=== PATIENT | male | born 1940 | race Caucasian/White ===

== ENCOUNTER 2019-08-16 14:49 | Day surgery (SDC) | payer OTHER ==
[~2019-08-16] VITALS: Ht 172.7 cm; Wt 79.8 kg
[~2019-08-16 14:49] MED LIST: ASPI81TA52 PO; ATOR40TA PO; CARV-50 PO; CLOP75TA35 PO; ESOM40CA49 PO; HYDR-4353 PO; LANTUS SQ; LISI-600 PO; MULT-1085 PO; ZOLP10TA5 PO
[2019-08-16 15:20] VITALS: BP 118/75
[2019-08-16] MEDS ORDERED: normal saline 1000ml 1,000 ML IV SCH (15:25)
[2019-08-16] MEDS ORDERED: cefazolin/dext.iso 2gm/100ml 100 ML IV ONE (15:25)
[2019-08-16] MEDS ORDERED: FLO0.4C PO (15:29)
[2019-08-16] MEDS ORDERED: LIDOcaine 1% W/epiNEPHrine 1:100,000 20ml vial ONE (17:41)
[2019-08-16] MEDS ORDERED: fentaNYL/PF 50MCG/1 ML 2ML syringe ONE (17:41)
[2019-08-16] MEDS ORDERED: midazolam 2 mg/2 ml injection ONE (17:41)
[2019-08-16] MEDS ORDERED: ceFAZolin 1000mg inj ONE (17:41)
[2019-08-16 18:44] VITALS: BP 157/59
[2019-08-16 18:59] VITALS: BP 145/61
[2019-08-16 19:15] VITALS: BP 120/57
[2019-08-16 19:30] VITALS: BP 121/67
== END 2019-08-16 19:50 | disposition home or self-care (01) ==
LOC: SSTAY O 14:49
PROVIDERS: ATTEND Internal Medicine Interventional Cardiology
DX: Z45.02 Encounter for adjustment and management of automatic implantable cardiac defibrillator (principal); I25.10 Atherosclerotic heart disease of native coronary artery without angina pectoris; I11.0 Hypertensive heart disease with heart failure; I50.9 Heart failure, unspecified; I25.2 Old myocardial infarction; E11.40 Type 2 diabetes mellitus with diabetic neuropathy, unspecified; Z95.1 Presence of aortocoronary bypass graft
CPT/HCPCS: 33263; 93005; 99152; 99153; C1721; J0690; J2250; J3010; J7030; A4620

== ENCOUNTER 2024-04-16 20:44 | Emergency (ER) | payer MEDICARE, OTHER ==
[~2024-04-16] VITALS: Ht 175.3 cm; Wt 55.5 kg
[~2024-04-16 20:44] MED LIST changes: -CLOP75TA35 PO; -ESOM40CA49 PO; +FLO0.4C PO; -LISI-600 PO; +LISI20TA28 PO; -MULT-1085 PO; -ZOLP10TA5 PO
[2024-04-16 21:31] VITALS: TEMP 97.7
[2024-04-16 21:33] LABS: BASOPHILS % (AUTO) 0.6 % (0-1); EOSINOPHILS % (AUTO) 0.7 % (0-6); HEMATOCRIT 30.4 % (42.0-52.0); HEMOGLOBIN 10.2 g/dl (14.0-17.9); LYMPHOCYTES # (AUTO) 1.5 X10'3 (1.1-4.8); LYMPHOCYTES % (AUTO) 26.6 % (21-51); MEAN CORPUSCULAR HGB CONC 33.6 g/dL (33.0-36.5); MEAN CORPUSCULAR VOLUME 104.1 FL (78-98); MEAN PLATELET VOLUME 10.5 FL (7.4-10.4); MONOCYTES # (AUTO) 0.4 X10'3 (0-0.9); MONOCYTES % (AUTO) 7.3 % (2-12); NEUTROPHILS # (AUTO) 3.6 X10'3 (1.8-7.7); NEUTROPHILS % (AUTO) 64.8 % (42-75); PLATELET COUNT 82 X10'3 (140-440); RED BLOOD COUNT 2.92 X10'6 (4.70-6.10); RED CELL DISTRIBUTION WIDTH 14.4 % (11.5-14.5); WHITE BLOOD COUNT 5.6 X10'3 (4.5-11.0)
[2024-04-16 21:50] LABS: ALANINE AMINOTRANSFERASE 19 U/L (12-78); ALBUMIN 3.3 G/DL (3.4-5.0); ALBUMIN/GLOBULIN RATIO 1.1 (1.1-1.5); ALKALINE PHOSPHATASE 89 IU/L (46-116); ANION GAP 12 (8-16); ASPARTATE AMINO TRANSFERASE 12 U/L (10-37); BILIRUBIN,TOTAL 0.4 MG/DL (0.1-1.0); BLOOD UREA NITROGEN 75 MG/DL (7-18); CALCIUM 8.8 MG/DL (8.5-10.1); CHLORIDE 111 MMOL/L (99-107); CREATININE 3.41 MG/DL (0.60-1.10); GLUCOSE 117 MG/DL (70-104); POTASSIUM 5.5 MMOL/L (3.5-5.1); SODIUM 142 MMOL/L (135-145); TOTAL CARBON DIOXIDE 18.7 MMOL/L (24-32); TOTAL PROTEIN 6.2 G/DL (6.4-8.2); eCRCL 12 ML/MIN; eGFR 17 ML/MIN
[2024-04-16 21:58] LABS: PRO BRAIN NATRIURETIC PEPTIDE 824 PG/ML (0-450)
[2024-04-16] MEDS: normal saline 1000ml 1,000 ML IV ONE (22:28)
[2024-04-16 23:28] LABS: BILIRUBIN,URINE SMALL (Neg); CLARITY,URINE SLIGHTLY CLOUDY (Clear); COLOR,URINE YELLOW (Yellow); GLUCOSE, URINE NEGATIVE (Neg); KETONES,URINE TRACE mg/dl (Neg); LEUKOCYTE ESTERASE ,URINE SMALL (Neg); NITRITES, URINE NEGATIVE (Neg); OCCULT BLOOD,URINE SMALL (Neg); PH,URINE 5.5 (4.8-8.0); PROTEIN,URINE NEGATIVE (Neg); UA COLLECTION TYPE STRAIGHT CATH; UROBILINOGEN,URINE 0.2 E.U/dL (0.2-1.0)
[2024-04-16 23:35] LABS: SQUAMOUS EPITHELIAL CELL,UR FEW /LPF (FEW)
[2024-04-16 23:36] LABS: BACTERIA,URINE 1+ /HPF (Neg); RBC,URINE 0-2 /HPF (0-2)
[2024-04-16] MEDS ORDERED: NITR100C6 PO (23:53)
[2024-04-17] MEDS: CefTRIAXone 2gm/D5W 50ml BAG 50 ML IV ONE
[2024-04-17 00:56] VITALS: BP 95/45; PULSE 60; RESP 16; O2SAT 100
== END 2024-04-17 01:06 | disposition home or self-care (01) ==
LOC: ER 20:45
DX: E86.0 Dehydration (principal); N39.0 Urinary tract infection, site not specified; I25.10 Atherosclerotic heart disease of native coronary artery without angina pectoris; I10 Essential (primary) hypertension; E11.9 Type 2 diabetes mellitus without complications; Z79.82 Long term (current) use of aspirin; Z79.899 Other long term (current) drug therapy; Z79.4 Long term (current) use of insulin
CPT/HCPCS: 36415; 71045; 80053; 81001; 83605; 83880; 84145; 84484; 85025; 87040; 87088; 93005; 96361; 96365; 99285; J0696; J7030; 87186; C1758